=== PATIENT | male | born 1990 | race Caucasian/White ===

== ENCOUNTER 2017-12-06 16:33 | Emergency (ER) | payer SELFPAY ==
[2017-12-06 16:38] VITALS: BP 133/89; PULSE 76; TEMP 98.7; BMI 35.7
--- NOTE | 2017-12-06 16:53 | PDOC ---
History of Present Illness - General History Source: Patient Exam Limitations: No Limitations - History of Present Illness Initial Comments: 12/06/17 17:43 The patient is a 27 year old male with a significant PMH of asthma and anxiety who presents to the emergency department with 2 days of intermittent left sided tingling sensation. The patient reports that his tingling sensation radiated from his left side of his face down to his fingers and toes on his left side. The patient reports some associated intermittent headache and lightheadedness with his left sided tingling sensation. The patient reports that he fell to his knees earlier today secondary to his worsening symptoms. The patient describes that he felt like he was going to pass out. The patient also reports episodes of shortness of breath, chest tightness, nausea and bloating. The patient reports that he was recently diagnosed with type 2 diabetes last week at an urgent care facility. The patient states that he has a follow up appointment with his PCP tomorrow regarding his recent diagnosis. He states that he was recently seen at [facility] 5 days ago.The patient reports that he has had panic attacks in the past. He denies any dizziness. He denies any fever, chills, nausea, vomit, diarrhea and constipation. He denies any urinary symptoms . The patient denies any other complaints. <Monique Gavin - Last Filed: 12/06/17 17:43> - History of Present Illness Initial Comments: 12/06/17 17:35 Physical exam: Alert and oriented, moderately anxious but in no acute distress, cooperative Afebrile, vital signs normal PERRLA, fundi benign, ENT clear Neck supple without bruit mass or nodes Lungs clear CV regular without murmur rub or gallop Abdomen benign Neurological C2 to 12 intact. Although the patient complains of intermittent tingling on the left side of his body, there is no demonstrable sensory deficit. No motor deficits. Strength full and symmetric. Gait stable and unimpaired. Reflexes 2+ symmetric. Cerebellum intact Impression: Anxiety, panic attacks, hyperventilation. Plan: EKG, chest x-ray, and blood work was negative at another hospital 5 days ago. No [employer] imaging was performed. CT today. If negative, follow up with PCP, psychiatrist, and therapist as directed. <Mati Oh - Last Filed: 12/06/17 18:05> - General Chief Complaint: Psychiatric Stated Complaint: LEFT SIDE TINGLING Time Seen by Provider: 12/06/17 16:53 Past History <Monique Gavin - Last Filed: 12/06/17 17:43> - Past Medical History Asthma: Yes Cardiac Disorders: No COPD: No DVT: No Dementia: No Diabetes: Yes Psychiatric Problems: Yes (ANXIETY) - Suicide/Smoking/Psychosocial Hx Smoking Status: No Smoking History: Former smoker Have you smoked in the past 12 months: No Number of Cigarettes Smoked Daily: 2 Information on smoking cessation initiated: No Hx Alcohol Use: Yes Drug/Substance Use Hx: No Substance Use Type: Alcohol <Mati Oh - Last Filed: 12/06/17 18:05> - Past Medical History Allergies/Adverse Reactions: Allergies Allergy/AdvReac Type Severity Reaction Status Date / Time No Known Allergies Allergy Verified 12/06/17 16:34 Home Medications: Ambulatory Orders Clonazepam [Klonopin] 0.5 mg PO DAILY 12/06/17 Review of Systems - Review of Systems Able to Perform ROS?: Yes Comments:: 12/06/17 17:44 CONSTITUTIONAL: Absent: fever, chills, diaphoresis, generalized weakness, malaise, loss of appetite HEENT: Absent: rhinorrhea, nasal congestion, throat pain, throat swelling, difficulty swallowing, mouth swelling, ear pain, eye pain, visual Changes CARDIOVASCULAR: (+)chest pain, lightheadedness Absent: syncope, palpitations, irregular heart rate, peripheral edema RESPIRATORY: (+)shortness of breath Absent: cough, dyspnea with exertion, orthopnea, wheezing, stridor, hemoptysis GASTROINTESTINAL:(+) nausea Absent: abdominal pain, abdominal distension, vomiting, diarrhea, constipation, melena, hematochezia GENITOURINARY: Absent: dysuria, frequency, urgency, hesitancy, hematuria, flank pain, genital pain MUSCULOSKELETAL: Absent: myalgia, arthralgia, joint swelling SKIN: Absent: rash, itching, pallor HEMATOLOGIC/IMMUNOLOGIC: Absent: easy bleeding, easy bruising, lymphadenopathy, frequent infections ENDOCRINE: Absent: unexplained weight gain, unexplained weight loss, heat intolerance, cold intolerance NEUROLOGIC: (+)headache , tingling sensation on left side of body Absent: focal weakness or paresthesias, dizziness, unsteady gait, seizure, mental status changes, bladder or bowel incontinence PSYCHIATRIC: (+)anxiety Absent: depression, suicidal or homicidal ideation, hallucinations. <Monique Gavin - Last Filed: 12/06/17 17:43> *Physical Exam - Vital Signs Last Vital Signs Temp Pulse Resp BP Pulse Ox 98.7 F 76 16 133/89 100 12/06/17 16:34 12/06/17 16:34 12/06/17 16:34 12/06/17 16:34 12/06/17 16:34 <Monique Gavin - Last Filed: 12/06/17 17:43> - Vital Signs Last Vital Signs Temp Pulse Resp BP Pulse Ox 98.7 F 76 16 133/89 100 12/06/17 16:34 12/06/17 16:34 12/06/17 16:34 12/06/17 16:34 12/06/17 16:34 <Mati Oh - Last Filed: 12/06/17 18:05> ED Treatment Course - ADDITIONAL ORDERS Additional order review: Laboratory Results 12/06/17 16:45 POC Glucometer [id number] 12/06/17 16:45 POC Glucometer [id number] <Monique Gavin - Last Filed: 12/06/17 17:43> Medical Decision Making - Medical Decision Making 12/06/17 17:33 Patient with a long history of anxiety, panic attacks, complains of recent onset of headaches and intermittent tingling of his left face left arm and left leg for 2 days. Evaluated 5 days ago at [facility], with EKG, chest x-ray, and blood work, reportedly negative. No diagnosis or treatment Self medicated with Klonopin for anxiety, no more than 2 mg each day. Also with hydroxyzine. Former heavy alcohol abuse, claims no alcohol since November 12. No tobacco. No street drugs. Has appointment with PCP tomorrow, investigating psychiatric consultation and initiating treatment by therapist. If CT negative, continue present treatment plan. 12/06/17 18:03 CT is negative. <Mati Oh - Last Filed: 12/06/17 18:05> *DC/Admit/Observation/Transfer - Attestations Scribe Attestion: 12/06/17 17:44 Documentation prepared by Collisia Romaine, acting as electromedical equipment technician for Mati Bhat MD. <Monique Gavin - Last Filed: 12/06/17 17:43> - Discharge Dispostion Decision to Admit order: No <Mati Oh - Last Filed: 12/06/17 18:05> Diagnosis at time of Disposition: Anxiety - Discharge Dispostion Disposition: HOME Condition at time of disposition: Stable - Referrals Referrals: Evon Easton MD [Staff Physician] - Chriss Greer MD [Staff Physician] - - Patient Instructions Printed Discharge Instructions: DI for Anxiety -- Adult Additional Instructions: Relaxation techniques, meditation, exercises recommended for stress reduction Begin to see PCP as soon as possible. Consider seeing a psychiatrist and therapist for further assistance.
== END 2017-12-06 18:13 | disposition home or self-care (01) ==
LOC: MERGE 16:33 → FER 16:33
DX: F41.9 Anxiety disorder, unspecified (principal); E11.9 Type 2 diabetes mellitus without complications; Z87.891 Personal history of nicotine dependence; J45.909 Unspecified asthma, uncomplicated
CPT/HCPCS: 70450-TC; 82962; 99282-25

== ENCOUNTER 2017-12-17 01:10 | Emergency (ER) | payer SELFPAY ==
[2017-12-17 01:57] VITALS: TEMP 97.9; BMI 34.4
[2017-12-17] MEDS ORDERED: FAMOTIDINE IV 20 MG/12 ML VIAL IVPUSH ONE (02:01)
[2017-12-17] MEDS ORDERED: SODIUM CHLORIDE 1,000 ML IV STA (02:01)
[2017-12-17] MEDS ORDERED: ACETAMINOPHEN 1000 MG/100 ML VIAL (NON FORMULARY) IVPB ONE (02:01)
[2017-12-17] MEDS ORDERED: FAMOTIDINE 20 MG/50 ML IVPB 20 MG/50 ML MG IVPB ONE (02:03)
[2017-12-17] MEDS ORDERED: ACETAMINOPHEN INJECTION 100 ML IVPB ONE (02:03)
[2017-12-17 02:24] LABS: BASO % 0.6 % (0-2.0); EOS % 1.7 % (0-4.5); HEMATOCRIT 45.6 % (35.4-49); HEMOGLOBIN 14.3 GM/dL (11.7-16.9); LYMPH % 30.3 % (8-40); MCH 21.7 pg (25.7-33.7); MCHC 31.3 g/dl (32.0-35.9); MEAN CELL VOLUME 69.2 fl (80-96); MEAN PLT VOLUME 10.2 fl (7.5-11.1); MONO % 8.9 % (3.8-10.2); NEUT % 58.5 % (42.8-82.8); PLATELET COUNT 248 K/MM3 (134-434); RBC 6.59 M/mm3 (4.00-5.60); RDW 14.5 % (11.9-15.9); WHITE BLOOD COUNT 10.4 K/mm3 (4.0-10.0)
--- NOTE | 2017-12-17 02:47 | PDOC ---
History of Present Illness - General History Source: Patient Exam Limitations: No Limitations - History of Present Illness Initial Comments: 12/17/17 03:01 The patient is a 27 year old male, with a significant past medical history of DM , depression, anxiety, and asthma, who presents to the emergency department with , 2 days of chest tightness, stomach pain, and irregular heartbeat. The patient describes his chest tightness as if something heavy is sitting on his chest. He describes his abdominal pain to be localized to the epigastric and generalized left quadrant. He reports back,neck, and shoulder pain.The patient reports bradycardia when supine and tachycardia when walking short distances. He checks his heart rate using an at home blood pressure machine with a pulse oximeter. The patient was recently diagnosed with DM and since been put on Metformin for the past 2 weeks. He reports going to [facility] 2 days ago for his symptoms where he had a normal cardiac workup. He was advised to follow up with a service sprinkler helper. He reports multiple episodes of watery diarrhea today. He denies any recent fevers, chills, or headache. He denies any recent nausea, vomit, or constipation. He denies any recent dysuria, frequency, urgency or hematuria. Allergies: NKA Social History: Nonsmoker. Denies EtOH use and recreational drug use. Primary Care Physician: Dr. Chao <Simeon Andrews - Last Filed: 12/17/17 04:28> - General History Source: Patient Exam Limitations: No Limitations <Edgar Coyle - Last Filed: 12/17/17 04:40> - General Chief Complaint: Pain Stated Complaint: CHEST PAIN/STOMACHACHE Time Seen by Provider: 12/17/17 01:47 Past History <Simeon Andrews - Last Filed: 12/17/17 04:28> - Past Medical History COPD: No Diabetes: Yes (2) Psychiatric Problems: Yes - Suicide/Smoking/Psychosocial Hx Smoking History: Never smoked <Edgar Coyle - Last Filed: 12/17/17 04:40> - Past Medical History Allergies/Adverse Reactions: Allergies Allergy/AdvReac Type Severity Reaction Status Date / Time No Known Allergies Allergy Verified 12/17/17 01:36 Home Medications: Ambulatory Orders Escitalopram Oxalate [Lexapro -] mg PO DAILY 12/17/17 Metformin HCl [Metformin HCl ER] 1,000 mg PO BID 12/17/17 Pantoprazole Sodium [Protonix] 40 mg PO DAILY #14 tablet. 12/17/17 clonazePAM [Klonopin -] mg PO BID 12/17/17 Review of Systems - Review of Systems Able to Perform ROS?: Yes Comments:: 12/17/17 03:01 GENERAL/CONSTITUTIONAL: No fever or chills. No weakness. HEAD, EYES, EARS, NOSE AND THROAT: No change in vision. No ear pain or discharge. No sore throat. +CARDIOVASCULAR: Chest pain. Irregular heartbeat. RESPIRATORY: No cough, wheezing, or hemoptysis. +GASTROINTESTINAL: Abdominal pain. Diarrhea. No nausea, vomiting, or constipation. GENITOURINARY: No dysuria, frequency, or change in urination. +MUSCULOSKELETAL: Back pain. Shoulder pain. No joint swelling or pain. No neck pain. SKIN: No rash NEUROLOGIC: No headache, vertigo, loss of consciousness, or change in strength/ sensation. ENDOCRINE: No increased thirst. No abnormal weight change. HEMATOLOGIC/LYMPHATIC: No anemia, easy bleeding, or history of blood clots. ALLERGIC/IMMUNOLOGIC: No hives or skin allergy. All Other Systems: Reviewed and Negative <Simeon Andrews - Last Filed: 12/17/17 04:28> *Physical Exam - Vital Signs Last Vital Signs Temp Pulse Resp BP Pulse Ox 97.9 F 63 18 125/85 98 12/17/17 01:38 12/17/17 01:38 12/17/17 01:38 12/17/17 01:38 12/17/17 01:38 - Physical Exam Comments: 12/17/17 03:01 +GENERAL: Obese. Awake, alert, and fully oriented, in no acute distress HEAD: No signs of trauma ENT: Moist mucosa NECK: Normal ROM, supple. LUNGS: Breath sounds equal, clear to auscultation bilaterally. No wheezes, and no crackles HEART: Regular rate and rhythm, normal S1 and S2, no murmurs, rubs or gallops +ABDOMEN: Tenderness to the epigastric and diffuse left upper and lower quadrant. Soft. No guarding, no rebound. No masses EXTREMITIES: Normal range of motion, no edema. No clubbing or cyanosis. No cords, erythema, or tenderness NEUROLOGICAL: Cranial nerves II through XII grossly intact. Normal speech, normal gait SKIN: Warm, Dry, normal turgor, no rashes or lesions noted. <Simeon Andrews - Last Filed: 12/17/17 04:28> - Vital Signs Last Vital Signs Temp Pulse Resp BP Pulse Ox 97.9 F 63 18 125/85 98 12/17/17 01:38 12/17/17 01:38 12/17/17 01:38 12/17/17 01:38 12/17/17 01:38 <Edgar Coyle - Last Filed: 12/17/17 04:40> Heart Score/ECG Review #1 ECG reviewed & interpreted by me at: 02:45 12/17/17 02:50 NSR 54, no std/sarah, T wave flat III, normal axis, normal intervals, QTC 424 msec <Edgar Coyle - Last Filed: 12/17/17 04:40> ED Treatment Course - LABORATORY CBC & Chemistry Diagram: 12/17/17 02:00 12/17/17 02:00 - ADDITIONAL ORDERS Additional order review: Laboratory Results 12/17/17 02:00 Sodium 140 Potassium 3.9 Chloride 107 Carbon Dioxide 24 Anion Gap 9 BUN 12 Creatinine 1.2 Creat Clearance w eGFR > 60 Random Glucose 83 Calcium 9.4 Total Bilirubin 0.3 AST 41 H ALT 125 H Alkaline Phosphatase 76 Creatine Kinase 138 Troponin I < 0.02 Total Protein 7.0 Albumin 4.0 Lipase 136 12/17/17 02:00 RBC 6.59 H MCV 69.2 L MCHC 31.3 L RDW 14.5 MPV 10.2 Neutrophils % 58.5 Lymphocytes % 30.3 Monocytes % 8.9 Eosinophils % 1.7 Basophils % 0.6 - Medications Given in the ED: ED Medications Discontinued Medications Generic Name Dose Route Start Last Admin Trade Name Freq PRN Reason Stop Dose Admin Acetaminophen 1,000 mg 12/17/17 02:01 12/17/17 02:24 Ofirmev Injection - IVPB 12/17/17 02:02 1,000 mg ONCE ONE Administration Famotidine 20 mg in 12 mls @ 144 mls/hr 12/17/17 02:01 12/17/17 02:15 Pepcid 20 Mg/12 Ml Push IVPUSH 12/17/17 02:05 144 mls/hr ONCE ONE Administration Sodium Chloride 1,000 mls @ 1,000 mls/hr 12/17/17 02:01 12/17/17 02:15 Normal Saline - IV 12/17/17 03:00 1,000 mls/hr ASDIR STA Administration <Simeon Andrews - Last Filed: 12/17/17 04:28> - LABORATORY CBC & Chemistry Diagram: 12/17/17 02:00 12/17/17 02:00 - RADIOLOGY Radiology Studies Ordered: Category Date Time Status ABDOMEN & PELVIS CT WITH CONTR [CT] Stat CT Scan 12/17/17 01:59 Ordered CHEST X-RAY PORTABLE* [RAD] Stat Radiology 12/17/17 01:59 Ordered - Medications Given in the ED: ED Medications Discontinued Medications Generic Name Dose Route Start Last Admin Trade Name Freq PRN Reason Stop Dose Admin Famotidine 20 mg in 12 mls @ 144 mls/hr 12/17/17 02:01 12/17/17 02:15 Pepcid 20 Mg/12 Ml Push IVPUSH 12/17/17 02:05 144 mls/hr ONCE ONE Administration <Edgar Coyle - Last Filed: 12/17/17 04:40> Medical Decision Making - Medical Decision Making 12/17/17 04:28 EXAM: ABDOMEN \T\ PELVIS CT WITH CONTR HISTORY: Left abdominal pain COMPARISON: None. FINDINGS: Lung bases are clear. The visualized cardiac chambers are normal size and configuration. Normal liver, gallbladder, pancreas, spleen, adrenal glands and kidneys. The stomach and abdominal small and large bowel are normal. There is no aortic aneurysm. There is no significant retroperitoneal lymphadenopathy. The pelvic small and large bowel are normal. The appendix is normal. The urinary bladder and prostate gland are normal. No pelvic free fluid is identified. There is no significant pelvic lymphadenopathy. Small fat-containing right inguinal hernia is noted. Old bilateral L5 pars defects noted with a minimal listhesis of L5 on S1. IMPRESSION: No localizing signs for acute pathology. 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 I have reviewed the details of the note, within reason, and agree with the documentation with the following case summary and management plan written by me. Patient treated in the ED. Nursing notes are reviewed and incorporated into the medical decision-making. Vital signs reviewed. Peripheral IV access obtained by the nurse, laboratory studies are drawn and sent, reviewed and interpreted by myself. Vital Signs Temp Pulse Resp BP Pulse Ox 97.9 F 63 18 125/85 98 12/17/17 01:38 12/17/17 01:38 12/17/17 01:38 12/17/17 01:38 12/17/17 01:38 27 year old male with history of obesity, depression, Type II diabetes presents with chest pain and abdominal pain x 2 days. The patient stated 2 days ago of developing a chest heaviness sensation but without associated shortness of breath. The patient started to develop chest discomfort with abdominal pain, worse in epigastric, LUQ, and LLQ. Had 1 loose stool today but denies fevers, chills, cough, nausea, vomiting. The patient has recently started lexapro and metformin approximately 2 weeks ago, and thinks the medications may be upsetting his stomach. The patient denies any prior cardiac history and denies smoking hx. Came in for these two symptoms. The patient also endorses of having a HR in the 50s at rest and 130s on walking. States that he feels his heart rate fluctuate quite often. The patient does report epigastric pain reporting to throat. The pain could certain by severe gastritis. however, given hx of diabetes, will need to obtain troponins. The patient did visit an ED 2 days ago at [facility] and reported a negative troponin then. Could the alternating heart rate be sick sinus syndrome ? Will place patient on monitor as well. Will obtain a chest xray, labs, UA, UC and CT abdomen and pelvis and reassess. 12/17/17 04:34 CBC, BMP 12/17/17 02:00 12/17/17 02:00 CMP Sodium 140 mmol/L (136-145) 12/17/17 02:00 Potassium 3.9 mmol/L (3.5-5.1) 12/17/17 02:00 Chloride 107 mmol/L (98-107) 12/17/17 02:00 Carbon Dioxide 24 mmol/L (21-32) 12/17/17 02:00 Anion Gap 9 (8-16) 12/17/17 02:00 BUN 12 mg/dL (7-18) 12/17/17 02:00 Creatinine 1.2 mg/dL (0.7-1.3) 12/17/17 02:00 Creat Clearance w eGFR > 60 (>60) 12/17/17 02:00 Random Glucose 83 mg/dL (74-106) 12/17/17 02:00 Calcium 9.4 mg/dL (8.5-10.1) 12/17/17 02:00 Total Bilirubin 0.3 mg/dL (0.2-1.0) 12/17/17 02:00 AST 41 U/L (15-37) H 12/17/17 02:00 ALT 125 U/L (12-78) H 12/17/17 02:00 Alkaline Phosphatase 76 U/L (45-117) 12/17/17 02:00 Creatine Kinase 138 IU/L (39-308) 12/17/17 02:00 Troponin I < 0.02 ng/ml (0.00-0.05) 12/17/17 02:00 Total Protein 7.0 g/dl (6.4-8.2) 12/17/17 02:00 Albumin 4.0 g/dl (3.4-5.0) 12/17/17 02:00 Lipase 136 U/L (73-393) 12/17/17 02:00 12/17/17 04:[address] reviewed. No acute findings. After pepcid, the patient did report some relief. The patient's ECG is reassurring and does not demonstrate any acute findings. Given negative workup, I advised the patient that he will need a holter monitor. At this time, the troponin is negative. The LFTs are mildly elevated, but will have patient follow up with PMD. Patient has no RUQ abd pain. The patient states that he is agreeable to the plan and will follow up as an outpatient. Will discharge with protonix. <Edgar Coyle - Last Filed: 12/17/17 04:40> *DC/Admit/Observation/Transfer - Attestations Scribe Attestion: 12/17/17 03:03 Documentation prepared by Simeon Andrews, acting as medical doctor nuclear medicine for Edgar Coyle MD. <Simeon Andrews - Last Filed: 12/17/17 04:28> - Discharge Dispostion Decision to Admit order: No <Edgar Coyle - Last Filed: 12/17/17 04:40> Diagnosis at time of Disposition: Atypical chest pain Abdominal pain Qualifiers: Abdominal location: unspecified location Qualified Code(s): R10.9 - Unspecified abdominal pain - Discharge Dispostion Disposition: HOME Condition at time of disposition: Stable - Prescriptions Prescriptions: Pantoprazole Sodium [Protonix] 40 mg PO DAILY #14 tablet.dr - Referrals Referrals: Ashwin Khan MD [Staff Physician] - Jose Macario MD [Staff Physician] - - Patient Instructions Printed Discharge Instructions: DI for Atypical Chest Pain, DI for Abdominal Pain-Adult, DI for Gastritis Additional Instructions: Your workup here in the ED is unremarkable. The liver function tests are slightly elevated. Please bring a copy of the tests to your doctor. In the meantime, please schedule an appointment with a service sprinkler helper. You will benefit from a holter monitor. Please drink plenty of fluids and rest. Take 40 mg protonix daily for acid reflux. If you have uncontrollable chest or abdominal pain, please return to the ER for further evaluation.
[2017-12-17 02:49] LABS: ANION GAP 9 (8-16); BILIRUBIN,TOTAL 0.3 mg/dL (0.2-1.0); BLOOD UREA NITROGEN 12 mg/dL (7-18); CALCIUM 9.4 mg/dL (8.5-10.1); CHLORIDE 107 mmol/L (98-107); CO2 24 mmol/L (21-32); CREATININE 1.2 mg/dL (0.7-1.3); GLUCOSE,RANDOM 83 mg/dL (74-106); LIPASE 136 U/L (73-393); POTASSIUM 3.9 mmol/L (3.5-5.1); SGOT/AST 41 U/L (15-37); SGPT/ALT 125 U/L (12-78); SODIUM 140 mmol/L (136-145)
[2017-12-17 02:51] LABS: ALK PHOS 76 U/L (45-117)
[2017-12-17 03:01] LABS: ANISOCYTOSIS 2+; MACROCYTOSIS 1+
[2017-12-17 05:09] VITALS: BP 115/68; PULSE 72
--- NOTE | 2017-12-17 10:12 | EKG ---
Test Reason : Blood Pressure : / mmHG Vent. Rate : 054 BPM Atrial Rate : 054 BPM P-R Int : 162 ms QRS Dur : 094 ms QT Int : 448 ms P-R-T Axes : 041 051 041 degrees QTc Int : 424 ms SINUS BRADYCARDIA OTHERWISE NORMAL ECG NO PREVIOUS ECGS AVAILABLE Confirmed by VERO MARTINEZ, KELTON ([id number]) on 12/17/2017 10:11:49 AM Referred By: Confirmed By:KELTON PHAM MD
== END 2017-12-17 05:06 | disposition home or self-care (01) ==
LOC: JER 01:10
DX: R07.89 Other chest pain (principal); R10.9 Unspecified abdominal pain; E11.9 Type 2 diabetes mellitus without complications; F41.8 Other specified anxiety disorders; J45.909 Unspecified asthma, uncomplicated
CPT/HCPCS: 36415; 71045-TC-FY; 74177-TC; 80053; 82550; 83690; 84484; 85025; 93005; 93010; 99281-25; J0131; J7030

== ENCOUNTER 2017-12-18 04:48 | Observation (INO) | payer SELFPAY ==
--- NOTE | 2017-12-18 05:09 | PDOC ---
History of Present Illness - General Chief Complaint: Chest Pain Stated Complaint: CHEST PAIN Time Seen by Provider: 12/18/17 04:58 History Source: Patient, Old Records Exam Limitations: No Limitations - History of Present Illness Initial Comments: 12/18/17 05:01 27-year-old male with history of depression, diabetes returns to the ER for persistent symptoms. Patient reports persistent lightheadedness and has been measuring his heart rate to be 48 at home. Reports persistence of chest pain. I had initially talked to the patient on the phone when he had the symptoms again overnight and advised patient returned the ER. Patient presents to the ER with the symptoms. Past History - Past Medical History Allergies/Adverse Reactions: Allergies Allergy/AdvReac Type Severity Reaction Status Date / Time No Known Allergies Allergy Verified 12/18/17 04:56 Home Medications: Ambulatory Orders Escitalopram Oxalate [Lexapro -] 10 mg PO DAILY 12/17/17 Metformin HCl [Metformin HCl ER] 1,000 mg PO BID 12/17/17 clonazePAM [Klonopin -] 1 mg PO BID 12/17/17 COPD: No Diabetes: Yes (2) Psychiatric Problems: Yes - Suicide/Smoking/Psychosocial Hx Smoking History: Never smoked Review of Systems - Review of Systems Able to Perform ROS?: Yes Comments:: 12/18/17 05:02 GENERAL/CONSTITUTIONAL: No fever, weakness. HEAD, EYES, EARS, NOSE AND THROAT: No change in vision. No ear pain or discharge. No sore throat. CARDIOVASCULAR: +chest pain, lightheadedness. No shortness of breath. RESPIRATORY: No cough, wheezing, or hemoptysis. GASTROINTESTINAL: No abdominal pain, nausea, vomiting, diarrhea, or decreased PO intolerance. GENITOURINARY: No dysuria, frequency, or change in urination. MUSCULOSKELETAL: No joint or muscle swelling or pain. No neck or back pain. SKIN: No rash NEUROLOGIC: No headache, vertigo, loss of consciousness, or change in strength/ sensation. ENDOCRINE: No increased thirst. No abnormal weight change. HEMATOLOGIC/LYMPHATIC: No anemia, easy bleeding, or history of blood clots. ALLERGIC/IMMUNOLOGIC: No hives or skin allergy. *Physical Exam - Physical Exam Comments: 12/18/17 05:03 GENERAL: Awake, alert, and fully oriented, in no acute distress. HEAD: No signs of trauma EYES: PERRLA, EOMI, sclera anicteric, conjunctiva clear ENT: Auricles normal inspection, hearing grossly normal, nares patent NECK: Normal ROM, supple LUNGS: Breath sounds equal, clear to auscultation bilaterally. No wheezes, and no crackles HEART: Regular rate and rhythm, normal S1 and S2, no murmurs, rubs or gallops ABDOMEN: Soft, nontender, No guarding, no rebound. No masses EXTREMITIES: Normal range of motion, no edema. No clubbing or cyanosis. No cords, erythema, or tenderness NEUROLOGICAL: Cranial nerves II through XII grossly intact. Normal speech, normal gait SKIN: Warm, Dry, normal turgor, no rashes or lesions noted. Heart Score/ECG Review #1 ECG reviewed & interpreted by me at: 05:25 12/18/17 05:34 NSR 57, no std/sarah, normal axis, normal intervals, QTC 424 msec ED Treatment Course - LABORATORY CBC & Chemistry Diagram: 12/18/17 05:05 12/18/17 05:05 Medical Decision Making - Medical Decision Making 12/18/17 05:01 A portion of this note was documented by scribe services under my direction. I have reviewed the details of the note, within reason, and agree with the documentation with the following case summary and management plan written by me. Patient treated in the ED. Nursing notes are reviewed and incorporated into the medical decision-making. Vital signs reviewed. Peripheral IV access obtained by the nurse, laboratory studies are drawn and sent, reviewed and interpreted by myself. Because of the persistence of the symptoms, the patient be evaluated from a cardiac standpoint of view. This includes telemetry. Again, could this be sick sinus syndrome? Ultimately, we'll obtain another EKG and troponin and admit the patient to hospital for further admission. 12/18/17 06:51 CBC, BMP 12/18/17 05:05 12/18/17 05:05 CMP Sodium 139 mmol/L (136-145) 12/18/17 05:05 Potassium 4.5 mmol/L (3.5-5.1) 12/18/17 05:05 Chloride 108 mmol/L (98-107) H 12/18/17 05:05 Carbon Dioxide 27 mmol/L (21-32) 12/18/17 05:05 Anion Gap 4 (8-16) L 12/18/17 05:05 BUN 8 mg/dL (7-18) D 12/18/17 05:05 Creatinine 1.2 mg/dL (0.7-1.3) 12/18/17 05:05 Creat Clearance w eGFR > 60 (>60) 12/18/17 05:05 Random Glucose 111 mg/dL (74-106) H D 12/18/17 05:05 Calcium 9.1 mg/dL (8.5-10.1) 12/18/17 05:05 Total Bilirubin 0.3 mg/dL (0.2-1.0) 12/18/17 05:05 AST 48 U/L (15-37) H 12/18/17 05:05 ALT 123 U/L (12-78) H 12/18/17 05:05 Alkaline Phosphatase 79 U/L (45-117) 12/18/17 05:05 Creatine Kinase 183 IU/L (39-308) 12/18/17 05:05 Troponin I < 0.02 ng/ml (0.00-0.05) 12/18/17 05:05 Total Protein 7.1 g/dl (6.4-8.2) 12/18/17 05:05 Albumin 4.0 g/dl (3.4-5.0) 12/18/17 05:05 TSH 1.28 uIU/ml (0.358-3.74) 12/18/17 05:05 Case discussed with [facility] hospitalist. Will admit to tele observation. *DC/Admit/Observation/Transfer Diagnosis at time of Disposition: Lightheadedness Chest pain Qualifiers: Chest pain type: unspecified Qualified Code(s): R07.9 - Chest pain, unspecified - Discharge Dispostion Condition at time of disposition: Stable Decision to Admit order: Yes - Referrals - Patient Instructions - Post Discharge Activity
[2017-12-18 05:21] LABS: BASO % 0.7 % (0-2.0); EOS % 2.7 % (0-4.5); HEMATOCRIT 44.6 % (35.4-49); LYMPH % 30.7 % (8-40); MCH 21.7 pg (25.7-33.7); MCHC 31.4 g/dl (32.0-35.9); MEAN CELL VOLUME 69.2 fl (80-96); MEAN PLT VOLUME 10.2 fl (7.5-11.1); MONO % 9.1 % (3.8-10.2); NEUT % 56.8 % (42.8-82.8); PLATELET COUNT 241 K/MM3 (134-434); RBC 6.44 M/mm3 (4.00-5.60); RDW 14.8 % (11.9-15.9); WHITE BLOOD COUNT 8.9 K/mm3 (4.0-10.0)
[2017-12-18 05:43] LABS: ANION GAP 4 (8-16); BILIRUBIN,TOTAL 0.3 mg/dL (0.2-1.0); BLOOD UREA NITROGEN 8 mg/dL (7-18); CALCIUM 9.1 mg/dL (8.5-10.1); CHLORIDE 108 mmol/L (98-107); CO2 27 mmol/L (21-32); CREATININE 1.2 mg/dL (0.7-1.3); GLUCOSE,RANDOM 111 mg/dL (74-106); SGPT/ALT 123 U/L (12-78); SODIUM 139 mmol/L (136-145); TOT PROT 7.1 g/dl (6.4-8.2)
[2017-12-18 05:52] LABS: ALK PHOS 79 U/L (45-117); POTASSIUM 4.5 mmol/L (3.5-5.1); SGOT/AST 48 U/L (15-37)
--- NOTE | 2017-12-18 08:34 | EKG ---
Test Reason : Blood Pressure : / mmHG Vent. Rate : 057 BPM Atrial Rate : 057 BPM P-R Int : 158 ms QRS Dur : 090 ms QT Int : 436 ms P-R-T Axes : 051 050 052 degrees QTc Int : 424 ms SINUS BRADYCARDIA OTHERWISE NORMAL ECG WHEN COMPARED WITH ECG OF 17-DEC-2017 02:43, NO SIGNIFICANT CHANGE WAS FOUND BASELINE ARTIFACT Confirmed by ANDRA MARTINEZ, NOY ([id number]) on 12/18/2017 8:34:24 AM Referred By: Confirmed By:NOY SILVERMAN MD
[2017-12-18] MEDS ORDERED: ALBUTEROL SO4 0.083% IH SOL 2.5 MG/3 ML VIAL.NEB. NEB PRN (09:02)
[2017-12-18 09:16] LABS: MAGNESIUM 2.1 mg/dL (1.8-2.4); PHOSPHOROUS 6.9 mg/dL (2.5-4.9)
[2017-12-18 09:42] LABS: PLATELET ESTIMATE ADEQUATE
--- NOTE | 2017-12-18 09:42 | HP ---
CHIEF COMPLAINT: lightheadedness, low HR PCP: HISTORY OF PRESENT ILLNESS: The patient is a 27 year old male with a PMH of depression, anxiety, DMII, asthma that presented to the hospital complaining of lightheadedness and low HR measured at home. He checks his HR several times a day and it ranges from 47 to 86. He endorses lightheadedness, chest tightness, occasional palpitations when lying in bed. He reports SOB due to his asthma that is relieved with Albuterol. The patient states that for the past 2 months he has been experiencing daily anxiety attacks. He believes that it is related to starting new job. He denies suicidal thoughts, lack of interest in daily activities, insomnia. One month ago he stopped using alcohol, (used to drink 4-5 alcoholic drinks a week, usually beer or wine). The patient also decided to eat healthy balanced diet, lost weight, around 20 lbs. Two weeks ago he visited urgent care clinic ( Dr Romo) and was diagnosed with DMII. His HgA1C was 10.8 and he was started on Metformin. The patient also visited his PCP that started him on Klonopin and Lexapro 2 weeks ago. The patient visited [facility] ER yesterday with similar complaints. He was told to see outpatient certified teacher assistant and was prescribed Protonix. 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 [employer] Family History: Mother: thyroid disease Father: ID x2 Uncle: ID Siblings healthy Allergies No Known Allergies Allergy (Verified 12/18/17 04:56) HOME MEDICATIONS: Home Medications Medication Instructions Recorded Escitalopram Oxalate [Lexapro -] 10 mg PO DAILY 12/17/17 Metformin HCl [Metformin HCl ER] 1,000 mg PO BID 12/17/17 clonazePAM [Klonopin -] 1 mg PO BID 12/17/17 REVIEW OF SYSTEMS CONSTITUTIONAL: loss of appetite, weight change Absent: fever, chills, diaphoresis, generalized weakness, malaise HEENT: Absent: rhinorrhea, nasal congestion, throat pain, throat swelling, difficulty swallowing, mouth swelling CARDIOVASCULAR: lightheadedness, Absent: chest pain, syncope, palpitations, irregular heart rate, peripheral edema RESPIRATORY: Absent: cough, shortness of breath, dyspnea with exertion, orthopnea, wheezing, stridor, hemoptysis GASTROINTESTINAL: Absent: abdominal pain, abdominal distension, nausea, vomiting, diarrhea, constipation, melena, hematochezia GENITOURINARY: Absent: dysuria, frequency, urgency, hesitancy, hematuria, flank pain, genital pain MUSCULOSKELETAL: Absent: myalgia, arthralgia, joint swelling, back pain, neck pain SKIN: Absent: rash, itching, pallor HEMATOLOGIC/IMMUNOLOGIC: Absent: easy bleeding, easy bruising, frequent infections ENDOCRINE: Absent: unexplained weight gain, unexplained weight loss, heat intolerance, cold intolerance NEUROLOGIC: Absent: headache, focal weakness or paresthesias, dizziness, unsteady gait, seizure PSYCHIATRIC: anxiety, depression Absent:suicidal or homicidal ideation, hallucinations. PHYSICAL EXAMINATION Vital Signs - 24 hr 12/18/17 04:56 Pulse Rate 59 L Respiratory 17 Rate Blood Pressure 131/96 O2 Sat by Pulse 99 Oximetry (%) GENERAL: Awake, alert, and fully oriented, in no acute distress. HEAD: Normal with no signs of trauma. EYES: Pupils equal, round and reactive to light, extraocular movements intact, sclera anicteric, conjunctiva clear. EARS, NOSE, THROAT: oropharynx clear without exudates. Moist mucous membranes. NECK: Normal range of motion, supple without lymphadenopathy. LUNGS: Breath sounds equal, clear to auscultation bilaterally. No wheezes, and no crackles. No accessory muscle use. HEART: Regular rate and rhythm, normal S1 and S2 without murmur, rub or gallop. ABDOMEN: Obese, soft, nontender, distended, normoactive bowel sounds, no guarding, no rebound, no masses. MUSCULOSKELETAL: Normal range of motion at all joints. No bony deformities or tenderness. No CVA tenderness. UPPER EXTREMITIES: 2+ pulses, no peripheral edema. LOWER EXTREMITIES: 2+ pulses, no peripheral edema. NEUROLOGICAL: Normal speech, no facial asymmetry, gait not observed. PSYCHIATRIC: Cooperative. Good eye contact. SKIN: Warm, dry, normal turgor, no rashes or lesions noted. Laboratory Results - last 24 hr 12/18/17 12/18/17 05:05 05:05 WBC 8.9 RBC 6.44 H Hgb 14.0 Hct 44.6 MCV 69.2 L MCH 21.7 L MCHC 31.4 L RDW 14.8 Plt Count 241 MPV 10.2 Neutrophils % 56.8 Lymphocytes % 30.7 Monocytes % 9.1 Eosinophils % 2.7 Basophils % 0.7 Nucleated RBC % 0 Sodium 139 Potassium 4.5 Chloride 108 H Carbon Dioxide 27 Anion Gap 4 L BUN 8 D Creatinine 1.2 Creat Clearance w eGFR > 60 Random Glucose 111 H D Calcium 9.1 Total Bilirubin 0.3 AST 48 H ALT 123 H Alkaline Phosphatase 79 Creatine Kinase 183 Creatine Kinase Index 0.5 CK-MB (CK-2) < 1.000 Troponin I < 0.02 Total Protein 7.1 Albumin 4.[address] abdomen/pelvis 12/17/17: No CT evidence of an acute process in the abdomen and pelvis. Limited evaluation of the colon due to lack of oral contrast administration with suggestion of scattered diverticula and without evidence of colitis/ acute diverticulitis. Minimal anterolisthesis of L5 over S1, grade 1 with chronic spondylolysis of the pars interarticularis, bilaterally. CXR 12/17/17: no acute pathology ASSESSMENT/PLAN: The patient is a 27 year old male with a PMH of depression, anxiety, DMII, asthma that presented to the hospital complaining of lightheadedness and low HR measured at home. He checks his HR several times a day and it ranges from 47 to 86. He endorses lightheadedness, chest tightness, occasional palpitations when lying in bed.The patient is admitted for lightheadedness, R/O ACS. R/o ACS: -the patient presented with compaints of lightheadedness, bradycardia and chest tightness that usually happens when he is in bed. The patient is also experiencing anxiety attacks and was started on new meds recently. His symptoms may be related to depression/anxiety but we need to r/o ACS. -we will continue cardiac monitoring -ECHO ordered -first troponin normal, will f/u next one -EKG NSR, no sarah/std, 57 bpm, QTC 424 -will f/u Cardiology recommendations Elevated liver enzymes: -the patient was told in the past that he has fatty liver and that also prompted him to stop drinking alcohol -CT abdomen didn't visualize any abnormality -we will obtain US liver -avoid toxic substances -will trend CMP History of alcoholism: -the patient states that he s not drinking for a month -will add on phosphorus and Mg to morning labs -counseling DMII: -states that his last Hg A1C was 9.85 last week -will obtain one ere in the hospital, added to morning labs -BGM ACHS -ISS ACHS -Metformin held -Diabetic diet -educated on healthy diet and need to check glucose at home Depression and anxiety: -recently diagnosed, no attacks in the hospital, no suicidal, no need for 1:1 continue home medications -will consult Psychiatry Hyperphosphatemia: -normal Ca -will obtain PTH, Vit D -will monitor Asthma: -Albuterol PRN -stabe F/E/N: no/no changes/Diabetic DVT PPX: Heparin sq scds Disposition: telemetry observation Problem List - Problem (1) Bradycardia Code(s): R00.1 - BRADYCARDIA, UNSPECIFIED (2) Depression Code(s): F32.9 - MAJOR DEPRESSIVE DISORDER, SINGLE EPISODE, UNSPECIFIED (3) Anxiety Code(s): F41.9 - ANXIETY DISORDER, UNSPECIFIED (4) Diabetes Code(s): E11.9 - TYPE 2 DIABETES MELLITUS WITHOUT COMPLICATIONS (5) Lightheadedness Code(s): R42 - DIZZINESS AND GIDDINESS (6) Atypical chest pain Code(s): R07.89 - OTHER CHEST PAIN Visit type - Emergency Visit Emergency Visit: Yes ED Registration Date: 12/18/17 Care time: The patient presented to the Emergency Department on the above date and was hospitalized for further evaluation of their emergent condition. - New Patient This patient is new to me today: Yes Date on this admission: 12/18/17 - Critical Care Critical Care patient: No Hospitalist Screening - Colonoscopy Questionnaire Colonoscopy Questionnaire: Colonoscopy Questionnaire - Patient: 50 - 75 years old and never had a screening colonoscopy: No History of colon or rectal polyps, or CA: No History of IBD, Crohn's disease or UC: No History of abdominal radiation therapy as a child: No - Relative: 1 with colon or rectal CA, or polyps at age 60 or younger: No Colon or rectal CA diagnosed at age 45 or younger: No Multiple relatives with colon or rectal CA: No - Outcome: Screening Result: Negative Screen
[2017-12-18] MEDS: HEPARIN NA (PORCINE) 5,000 UNITS/ML 1ML VIAL SQ SCH ×2 (10:52→21:56)
[2017-12-18] MEDS: clonazePAM 0.5 MG TABLET PO SCH ×2 (10:52→21:56)
[2017-12-18] MEDS: ESCITALOPRAM OXALATE 10 MG TABLET (FP) PO SCH (10:52)
--- NOTE | 2017-12-18 11:52 | PN ---
Teaching Attending Note Name of Resident: Lyric Ha ATTENDING PHYSICIAN STATEMENT I saw and evaluated the patient. I reviewed the resident's note and discussed the case with the resident. I agree with the resident's findings and plan as documented with exceptions below. SUBJECTIVE: 27 yom with PMHx of Depression/anxiety, Asthma, obesity, recently diagnosed DM started on metformin, comes with intermittent symptoms of chest pain, palpitaitons, anxiety, lightheadedness. Feels has been having 'anxiety attacks' over last few weeks. Was seen in urgent care, found with A1c > 10, placed on metformin. Also seen by PCP and started on lexapro and klonopin. Was seen in ED on 12/17 with vague chest/abdominal symptoms, s/p non concerning CT A/p and sent out on protonix with outpatient follow up with outer diameter grinder tool. However back in ED with similar symptoms today and admitted to obs. patient anxious, also reports snoring at night. No recent fevers, chills, changes in bowels. Mother and brother with anxiety. Father with KS in 50s, uncle with KS. Recently lost weight and has been doing yoga few times a week. OBJECTIVE: Vital Signs Period Temp Pulse Resp BP Sys/Hung Pulse Ox Last 24 Hr 57-59 16-17 131-145/74-96 99-100 Intake & Output 12/15/17 12/16/17 12/17/17 12/18/17 23:59 23:59 23:59 23:59 Weight 229 lb 15.991 oz GENERAL: Awake, alert, and fully oriented, in no acute distress, anxious male. HEAD: Normal with no signs of trauma. EYES: Pupils equal, round and reactive to light, extraocular movements intact, sclera anicteric, conjunctiva clear. No lid lag. EARS, NOSE, THROAT: Ears normal, nares patent, oropharynx clear without exudates. Moist mucous membranes. NECK: soft, supple, no JVD, no masses appreciated. LUNGS: Breath sounds equal, clear to auscultation bilaterally. No wheezes, and no crackles. No accessory muscle use. HEART: S1S2 regular ABDOMEN: Soft, nontender, not distended, normoactive bowel sounds, no guarding, no rebound, no masses. No hepatomegaly or splenomegaly. MUSCULOSKELETAL: Normal range of motion at all joints. No bony deformities or tenderness. No CVA tenderness. UPPER EXTREMITIES: 2+ pulses, warm, well-perfused. No cyanosis. No clubbing. No peripheral edema. LOWER EXTREMITIES: 2+ pulses, warm, well-perfused. No calf tenderness. No peripheral edema. NEUROLOGICAL: Cranial nerves II-XII intact. Normal speech. Normal gait. PSYCHIATRIC: Cooperative. Good eye contact. Appropriate mood and affect. SKIN: Warm, dry, normal turgor, no rashes or lesions noted, normal capillary refill. Home Medication List Medication Instructions Recorded Confirmed Type Escitalopram Oxalate [Lexapro -] 10 mg PO DAILY 12/17/17 12/18/17 History Metformin HCl [Metformin HCl ER] 1,000 mg PO BID 12/17/17 12/18/17 History clonazePAM [Klonopin -] 1 mg PO BID 12/17/17 12/18/17 History Active Medications Generic Name Dose Route Start Last Admin Trade Name Freq PRN Reason Stop Dose Admin Albuterol Sulfate 1 amp 12/18/17 09:02 Ventolin 0.083% Nebulizer Soln - NEB Q6H PRN SHORT OF BREATH/WHEEZING Clonazepam 1 mg 12/18/17 10:00 12/18/17 10:52 Klonopin - PO 1 mg BID JONNIE Administration Escitalopram Oxalate 10 mg 12/18/17 10:00 12/18/17 10:52 Lexapro - PO 10 mg DAILY JONNIE Administration Heparin Sodium (Porcine) 5,000 unit 12/18/17 10:00 12/18/17 10:52 Heparin - SQ 5,000 unit BID JONNIE Administration Insulin Aspart 1 vial 12/18/17 11:00 Novolog Vial Sliding Scale - SQ ACHS ON LICENSE OF [facility] Protocol Laboratory Results - last 24 hr 12/18/17 12/18/17 12/18/17 05:05 05:05 05:05 WBC 8.9 RBC 6.44 H Hgb 14.0 Hct 44.6 MCV 69.2 L MCH 21.7 L MCHC 31.4 L RDW 14.8 Plt Count 241 MPV 10.2 Neutrophils % 56.8 Lymphocytes % 30.7 Monocytes % 9.1 Eosinophils % 2.7 Basophils % 0.7 Nucleated RBC % 0 Platelet Estimate Adequate Platelet Comment No clotting detected Sodium 139 Potassium 4.5 Chloride 108 H Carbon Dioxide 27 Anion Gap 4 L BUN 8 D Creatinine 1.2 Creat Clearance w eGFR > 60 Random Glucose 111 H D Hemoglobin A1c % Calcium 9.1 Phosphorus 6.9 H Cancelled Magnesium 2.1 Cancelled Total Bilirubin 0.3 AST 48 H ALT 123 H Alkaline Phosphatase 79 Creatine Kinase 183 Creatine Kinase Index 0.5 CK-MB (CK-2) < 1.000 Troponin I < 0.02 Total Protein 7.1 Albumin 4.0 TSH 1.28 12/18/17 05:05 WBC RBC Hgb Hct MCV MCH MCHC RDW Plt Count MPV Neutrophils % Lymphocytes % Monocytes % Eosinophils % Basophils % Nucleated RBC % Platelet Estimate Platelet Comment Sodium Potassium Chloride Carbon Dioxide Anion Gap BUN Creatinine Creat Clearance w eGFR Random Glucose Hemoglobin A1c % 9.1 H Calcium Phosphorus Magnesium Total Bilirubin AST ALT Alkaline Phosphatase Creatine Kinase Creatine Kinase Index CK-MB (CK-2) Troponin I Total Protein Albumin TSH EKG sinus bradycardia 50s, no acute ST-T changes CT A/P 12/17 results reviewed CXR - large heart ASSESSMENT AND PLAN: 27 yom with obesity, depression, anxiety, recently diagnosed DM, placed on metformin, comes with ongoing symptoms of "anxiety attack", chest pain, dyspnea , palpitations, light headedness. -Palpitations/lightheadedness, r/o arrhythmia, unlikely ACS -Hyperphosphatemia -Abnormal LFTs, likely hepatic steatosis -Recently Diagnosed DM -Depression -Anxiety -Obesity Plan: Frequent visits to health care for ongoing symptoms. Will place on telemetry overnight, 2Decho, cardiology input. May benefit from outpatient holter if no events. Check Vitamin D and PTH levels. Monitor Phos levels. Endocrine follow up outpatient, ?urine metanephrines, will hold off for now. Check abdominal US, trend LFTs. Continue lexapro and klonopin. Outpatient sleep study. May benefit from psychiatry eval outpatient if w/u unrevealing. Admit to obs, dc in 24 hours if no concerns and negative w/u. Plan discussed with patient in detail, all questions answered. Total admit time 50 min.
[2017-12-18] MEDS: INSULIN SLIDING SCALE (NOVOLOG) 1 VIAL SQ SCH ×3 (12:26→21:56)
--- NOTE | 2017-12-18 13:19 | CON.PSY ---
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 Patient being treated by his PMD for anxiety with Lexapro and KLonapin. Reports no suicidal or IN Patient psych admissions. Symptoms: reports: Anxiety - Previous Psychiatric Treatment Outpatient: Less than 6 mos ago Inpatient: None - Previous Substance Abuse Treatment Outpatient: None Inpatient: None - Reason for Previous Treatment Reason for Previous Treatment: Major Depression, Anxiety or Panic Disorder - Current Medications Current Medications: Active Medications Albuterol Sulfate (Ventolin 0.083% Nebulizer Soln -) 1 amp NEB Q6H PRN PRN Reason: SHORT OF BREATH/WHEEZING Clonazepam (Klonopin -) 1 mg PO BID [facility] Last Admin: 12/18/17 10:52 Dose: 1 mg Escitalopram Oxalate (Lexapro -) 10 mg PO DAILY [facility] Last Admin: 12/18/17 10:52 Dose: 10 mg Heparin Sodium (Porcine) (Heparin -) 5,000 unit SQ BID [facility] Last Admin: 12/18/17 10:52 Dose: 5,000 unit Insulin Aspart (Novolog Vial Sliding Scale -) 1 vial SQ ACHS [facility]; Protocol Last Admin: 12/18/17 12:26 Dose: Not Given - Allergies Allergies: Allergies Allergy/AdvReac Type Severity Reaction Status Date / Time No Known Allergies Allergy Verified 12/18/17 04:56 - Current Living Status Usual Living Arrangement: With Significant Other - Current Mental Status Evaluation Appearance: Well Groomed Attitude: Cooperative - Mood Mood: Euthymic - Speech/Language Expressive: Coherent - Psychomotor Activity Psychomotor Activity: Normal - Thought Process Thought Process: Intact - Thought Content Hallucinations: Absent Delusions: Absent - Self Perception Self Perception: No Impairment - Cognition Attention: Alert Orientation: Time Memory, Immediate Recall: Intact Memory, Short Term: 3/3 Memory, Remote with Promptin/3 - Concentration Serial Sevens Intact: Yes Simple Calculations Intact: Yes - Abstraction Proverb Interpretation: Intact Judgement: Intact - Insight Insight: Intact - Impulse Control Impulse Control: Good Control - Suicidal Ideation Suicidal Ideation: No - Homicidal Ideation Homicidal Ideation: No Assessment/Plan 1) Patient is not suicidal. 2) Continue with [facility] psych meds. Follow up with his MD.
[2017-12-18 15:09] VITALS: BMI 34.3
--- NOTE | 2017-12-18 16:35 | CON.CARD ---
Cardiology Consult (text) - Consultation Consultation Note: CC: cp 27 yo with PMHx of Depression/anxiety recently started on lexapro and klonopin, Asthma, obesity, recently diagnosed DM started on metformin who p/w persistent cp. Feels has been having 'anxiety attacks' over last few weeks, started no lexapro and klonipin. First p/w cp last week, was evaluated at [facility]. Per report, had neg work up. Presented to the ED here yesterday after cp progressed to abdominal pain. Was diagnosed with gastritis and sent home on protonix. LFT's noted to be elevated at the time. Was also bradycardic in the 50's. Returned to ED again today with persistent cp and also new sx of lightheadedness. States his hr was in the high 40's. states his cp typically occurs when lying down at night, improves with sitting up. + anxiety. rare palps, + apneic symptoms. Denies sob, orthopnea, pnd, le edema, palps, claudication or transient neurologic symptoms Denies f/c/s, n/v/d , cough, congestion, rash, h/a, visual disturbances, bleeding. pmhx/pshx: per hpi social hx: never tobacco, drank 3-4 drinks 4-5 days/week up until last month. once or twice a month would drink up to 12 beers. fam hx: Father with IL in 50s, uncle with IL. ros: per hpi Ambulatory Orders Escitalopram Oxalate [Lexapro -] 10 mg PO DAILY 12/17/17 Metformin HCl [Metformin HCl ER] 1,000 mg PO BID 12/17/17 clonazePAM [Klonopin -] 1 mg PO BID 12/17/17 Current Medications Albuterol Sulfate (Ventolin 0.083% Nebulizer Soln -) 1 amp NEB Q6H PRN PRN Reason: SHORT OF BREATH/WHEEZING Clonazepam (Klonopin -) 1 mg PO BID [facility] Last Admin: 12/18/17 10:52 Dose: 1 mg Escitalopram Oxalate (Lexapro -) 10 mg PO DAILY [facility] Last Admin: 12/18/17 10:52 Dose: 10 mg Heparin Sodium (Porcine) (Heparin -) 5,000 unit SQ BID [facility] Last Admin: 12/18/17 10:52 Dose: 5,000 unit Insulin Aspart (Novolog Vial Sliding Scale -) 1 vial SQ ACHS [facility]; Protocol Last Admin: 12/18/17 12:26 Dose: Not Given Vital Signs - 24 hr 12/18/17 12/18/17 12/18/17 04:56 09:35 14:22 Temperature 97.7 F Pulse Rate 59 L 85 Pulse Rate [ 57 L Apical] Respiratory 17 16 18 Rate Blood Pressure 131/96 117/70 Blood Pressure 145/74 [Right Arm] O2 Sat by Pulse 99 100 Oximetry (%) 12/18/17 12/18/17 15:01 15:12 Temperature 98.1 F Pulse Rate 53 L Pulse Rate [ Apical] Respiratory 18 18 Rate Blood Pressure 137/79 Blood Pressure [Right Arm] O2 Sat by Pulse 97 Oximetry (%) Intake & Output 12/16/17 12/17/17 12/18/17 12/19/17 07:59 07:59 07:59 07:59 Weight 229 lb 15.991 oz 229 lb NAD, anxious JVD flat, neck supple ctab, nl effort rrr nl s1, s2. no mrg + bs soft nt nd ext without e/c/c + dp/pt, no carotid bruits no jaundice, diaphoresis aaox3 CBC, BMP 12/18/17 05:05 12/18/17 05:05 Laboratory Tests 12/17/17 12/18/17 12/18/17 02:00 05:05 05:05 Hemoglobin A1c % 9.1 H Magnesium 2.1 Total Bilirubin 0.3 AST 48 H ALT 123 H Alkaline Phosphatase 79 Troponin I < 0.02 < 0.02 Albumin 4.0 Lipase 136 TSH 1.28 12/18/17 10:00 Hemoglobin A1c % Magnesium Total Bilirubin AST ALT Alkaline Phosphatase Troponin I < 0.02 Albumin Lipase TSH EKG: sb, 57 bpm. early r wave progression. no acute ischemic changes. tele: sb cxr: large heart, no acute pathology. abd u/s: fatty liver. nl abd aorta and ivc. 27 yo with PMHx of Depression/anxiety recently started on lexapro and klonopin, Asthma, obesity, recently diagnosed DM started on metformin who p/w persistent cp. cp: - atypical cp. ce's neg x 3. ekg without acute ischemic changes. check esr, crp to r/o pericarditis. check echo. + family hx of cad, + rf's. will check ETT. - eval/mgm't of possible gi component per pmd. - mgm't of anxiety per psych/pmd, utox ordered. sinus bradycardia - no acute pathology, tele benign, tsh wnl. lytes wnl. can follow up with cardiology as outpatient regarding whether further cardiac monitoring needed. - can consider sleep study. stable from CV perspective, ok to d/c from cv perspective if echo and ETT wnl.
[2017-12-18] MEDS ORDERED: ACETAMINOPHEN 325 MG TABLET (FP) ONE (21:47)
[2017-12-18] MEDS ORDERED: ACETAMINOPHEN 325 MG TABLET (FP) PO PRN (21:51)
[2017-12-19] MEDS: INSULIN SLIDING SCALE (NOVOLOG) 1 VIAL SQ SCH ×4 (06:32→21:13)
--- NOTE | 2017-12-19 06:35 | PN ---
Physical Exam: SUBJECTIVE: Patient seen and examined. No lightheadedness or palpitations, no SOB. OBJECTIVE: Vital Signs Period Temp Pulse Resp BP Sys/Hung Pulse Ox Last 24 Hr 97.5 F-98.1 F 53-85 16-20 98-145/64-81 97-100 Vital Signs Temp 97.8 F 12/19/17 09:00 Pulse 56 L 12/19/17 09:00 Resp 18 12/19/17 09:00 BP 126/79 12/19/17 09:00 Pulse Ox 97 12/19/17 09:00 GENERAL: The patient is awake, alert, and fully oriented, in no acute distress. LUNGS: Breath sounds equal, clear to auscultation bilaterally HEART: Regular rate and rhythm, S1, S2 without murmur ABDOMEN: Soft, nontender, nondistended, normoactive bowel sounds EXTREMITIES: 2+ pulses, warm, well-perfused, no edema. NEUROLOGICAL: Cranial nerves II through XII grossly intact. Normal speech, gait not observed. PSYCH: Normal mood, normal affect. Laboratory Results - last 24 hr 12/18/17 12/18/17 12/18/17 05:05 05:05 05:05 Platelet Estimate Adequate Platelet Comment No clotting detected Sodium 139 Potassium 4.5 Chloride 108 H Carbon Dioxide 27 Anion Gap 4 L BUN 8 D Creatinine 1.2 Creat Clearance w eGFR > 60 POC Glucometer Random Glucose 111 H D Hemoglobin A1c % Calcium 9.1 Phosphorus 6.9 H Cancelled Magnesium 2.1 Cancelled Total Bilirubin 0.3 AST 48 H ALT 123 H Alkaline Phosphatase 79 Creatine Kinase 183 Creatine Kinase Index 0.5 CK-MB (CK-2) < 1.000 Troponin I < 0.02 C-Reactive Protein Total Protein 7.1 Albumin 4.0 TSH 1.28 12/18/17 12/18/17 12/18/17 05:05 10:00 12:08 Platelet Estimate Platelet Comment Sodium Potassium Chloride Carbon Dioxide Anion Gap BUN Creatinine Creat Clearance w eGFR POC Glucometer 108 Random Glucose Hemoglobin A1c % 9.1 H Calcium Phosphorus Magnesium Total Bilirubin AST ALT Alkaline Phosphatase Creatine Kinase 135 Creatine Kinase Index CK-MB (CK-2) Troponin I < 0.02 C-Reactive Protein Total Protein Albumin TSH 12/18/17 12/18/17 12/18/17 17:03 18:45 21:55 Platelet Estimate Platelet Comment Sodium Potassium Chloride Carbon Dioxide Anion Gap BUN Creatinine Creat Clearance w eGFR POC Glucometer 120 143 Random Glucose Hemoglobin A1c % Calcium Phosphorus Magnesium Total Bilirubin AST ALT Alkaline Phosphatase Creatine Kinase Creatine Kinase Index CK-MB (CK-2) Troponin I C-Reactive Protein < 0.3 Total Protein Albumin TSH 12/19/17 06:05 Platelet Estimate Platelet Comment Sodium Potassium Chloride Carbon Dioxide Anion Gap BUN Creatinine Creat Clearance w eGFR POC Glucometer 92 Random Glucose Hemoglobin A1c % Calcium Phosphorus Magnesium Total Bilirubin AST ALT Alkaline Phosphatase Creatine Kinase Creatine Kinase Index CK-MB (CK-2) Troponin I C-Reactive Protein Total Protein Albumin TSH Active Medications Generic Name Dose Route Start Last Admin Trade Name Freq PRN Reason Stop Dose Admin Acetaminophen 650 mg 12/18/17 21:51 12/18/17 21:56 Tylenol - PO 650 mg Q6H PRN Administration PAIN LEVEL 6-10 Albuterol Sulfate 1 amp 12/18/17 09:02 Ventolin 0.083% Nebulizer Soln - NEB Q6H PRN SHORT OF BREATH/WHEEZING Clonazepam 1 mg 12/18/17 10:00 12/18/17 21:56 Klonopin - PO 1 mg BID JONNIE Administration Escitalopram Oxalate 10 mg 12/18/17 10:00 12/18/17 10:52 Lexapro - PO 10 mg DAILY JONNIE Administration Heparin Sodium (Porcine) 5,000 unit 12/18/17 10:00 12/18/17 21:56 Heparin - SQ 5,000 unit BID JONNIE Administration Insulin Aspart 1 vial 12/18/17 11:00 12/19/17 06:32 Novolog Vial Sliding Scale - SQ Not Given ACHS [facility] Protocol Ambulatory Orders Escitalopram Oxalate [Lexapro -] 10 mg PO DAILY 12/17/17 Metformin HCl [Metformin HCl ER] 1,000 mg PO BID 12/17/17 clonazePAM [Klonopin -] 1 mg PO BID 12/17/17 Current Medications Acetaminophen (Tylenol -) 650 mg PO Q6H PRN PRN Reason: PAIN LEVEL 6-10 Last Admin: 12/18/17 21:56 Dose: 650 mg Albuterol Sulfate (Ventolin 0.083% Nebulizer Soln -) 1 amp NEB Q6H PRN PRN Reason: SHORT OF BREATH/WHEEZING Clonazepam (Klonopin -) 1 mg PO BID [facility] Last Admin: 12/18/17 21:56 Dose: 1 mg Escitalopram Oxalate (Lexapro -) 10 mg PO DAILY [facility] Last Admin: 12/18/17 10:52 Dose: 10 mg Heparin Sodium (Porcine) (Heparin -) 5,000 unit SQ BID [facility] Last Admin: 12/18/17 21:56 Dose: 5,000 unit Insulin Aspart (Novolog Vial Sliding Scale -) 1 vial SQ ACHS [facility]; Protocol Last Admin: 12/19/17 06:32 Dose: Not Given CT abdomen/pelvis 12/17/17: No CT evidence of an acute process in the abdomen and pelvis. Limited evaluation of the colon due to lack of oral contrast administration with suggestion of scattered diverticula and without evidence of colitis/ acute diverticulitis. Minimal anterolisthesis of L5 over S1, grade 1 with chronic spondylolysis of the pars interarticularis, bilaterally. CXR 12/17/17: no acute pathology ECHO: LV systolic function is moderately reduced. Moderate global kinesis of LV. Left ventricle is mildly dilated . No pericardial effusion. ASSESSMENT/PLAN: The patient is a 27 year old male with a PMH of depression, anxiety, DMII, asthma that presented to the hospital complaining of lightheadedness and low HR measured at home. He checks his HR several times a day and it ranges from 47 to 86. He endorses lightheadedness, chest tightness, occasional palpitations when lying in bed.The patient is admitted for lightheadedness, R/O ACS. R/o ACS: -the patient presented with compaints of lightheadedness, bradycardia and chest tightness that usually happens when he is in bed. The patient is also experiencing anxiety attacks and was started on new meds recently. His symptoms may be related to depression/anxiety but we need to r/o ACS. -we will continue cardiac monitoring- regina and some tachy -ECHO done- see above -Trops x3 negative -EKG NSR, no sarah/std, 57 bpm, QTC 424 -will f/u Cardiology recommendations -check esr, crp to r/o pericarditis. check echo. + family hx of cad, + rf's. will check ETT. -sinus bradycardia - no acute pathology, tsh wnl. lytes wnl. - Pending nuclear stress test Elevated liver enzymes: -the patient was told in the past that he has fatty liver and that also prompted him to stop drinking alcohol -CT abdomen didn't visualize any abnormality -we will obtain US liver -avoid toxic substances -will trend CMP History of alcoholism: -the patient states that he s not drinking for a month -will add on phosphorus and Mg to morning labs -counseling DMII: -states that his last Hg A1C was 9.85 last week, 9.1 here -BGM ACHS -ISS ACHS -Metformin held -Diabetic diet -educated on healthy diet and need to check glucose at home Depression and anxiety: -recently diagnosed, no attacks in the hospital, no suicidal, no need for 1:1 continue home medications -Psychiatry consult- Dr Greer- appreciate rec Hyperphosphatemia: -normal Ca -will obtain PTH, Vit D -will monitor Asthma: -Albuterol PRN -stable F/E/N: no/no changes/Diabetic DVT PPX: Heparin sq scds Disposition: For D/C following nuclear stress test Visit type - Emergency Visit Emergency Visit: Yes ED Registration Date: 12/18/17 Care time: The patient presented to the Emergency Department on the above date and was hospitalized for further evaluation of their emergent condition. - New Patient This patient is new to me today: Yes Date on this admission: 12/19/17 - Critical Care Critical Care patient: No - Discharge Referral Referred to [facility] No
[2017-12-19 07:02] LABS: HEMATOCRIT 46.2 % (35.4-49); HEMOGLOBIN 14.7 GM/dL (11.7-16.9); MCH 22.3 pg (25.7-33.7); MCHC 31.8 g/dl (32.0-35.9); MEAN PLT VOLUME 10.2 fl (7.5-11.1); PLATELET COUNT 232 K/MM3 (134-434); RDW 14.8 % (11.9-15.9); WHITE BLOOD COUNT 7.1 K/mm3 (4.0-10.0)
[2017-12-19 07:20] LABS: ANION GAP 7 (8-16); BLOOD UREA NITROGEN 10 mg/dL (7-18); CALCIUM 9.1 mg/dL (8.5-10.1); CHLORIDE 105 mmol/L (98-107); CO2 27 mmol/L (21-32); CREATININE 1.3 mg/dL (0.7-1.3); GLUCOSE,RANDOM 95 mg/dL (74-106); POTASSIUM 4.4 mmol/L (3.5-5.1); SGOT/AST 44 U/L (15-37); SGPT/ALT 135 U/L (12-78); SODIUM 139 mmol/L (136-145); TRIGLYCERIDES 180 mg/dL (35-160)
[2017-12-19 07:26] LABS: ALK PHOS 74 U/L (45-117); BILIRUBIN,TOTAL 0.4 mg/dL (0.2-1.0); CHOLESTEROL 159 mg/dL (50-200); HDL CHOLESTEROL 42 mg/dL (40-60); PHOSPHOROUS 5.4 mg/dL (2.5-4.9); TOT PROT 7.2 g/dl (6.4-8.2)
[2017-12-19] MEDS: clonazePAM 0.5 MG TABLET PO SCH ×2 (09:43→21:13)
[2017-12-19] MEDS: ESCITALOPRAM OXALATE 10 MG TABLET (FP) PO SCH (09:43)
[2017-12-19] MEDS: HEPARIN NA (PORCINE) 5,000 UNITS/ML 1ML VIAL SQ SCH ×2 (09:43→21:13)
--- NOTE | 2017-12-19 13:16 | PN ---
Teaching Attending Note Name of Resident: Eunice Arredondo Arleenbre ATTENDING PHYSICIAN STATEMENT I saw and evaluated the patient. I reviewed the resident's note and discussed the case with the resident. I agree with the resident's findings and plan as documented. SUBJECTIVE:no recurring episodes of palpitations. notes that when he gets out of the bed that his HR increases. states he was sleeping around 6am and no symptoms which correlated with an episodes of sinus tachycardia. denies CP, fever, chills, cough, N/V/C/D OBJECTIVE: Last Vital Signs Temp Pulse Resp BP Pulse Ox 97.8 F 56 L 18 126/79 97 12/19/17 09:00 12/19/17 09:00 12/19/17 09:00 12/19/17 09:00 12/19/17 09:00 General NAD CV S1 S2 RRR no murmur/rub/gallop Lungs CTA B/L no wheezing/rales/rhonchi ASSESSMENT AND PLAN: 27 yo M with obesity, depression, anxiety, recently diagnosed DM, placed on metformin, comes with ongoing symptoms of "anxiety attack", chest pain, dyspnea , palpitations, light headedness. 1. Palpitations/lightheadedness, r/o arrhythmia, unlikely ACS - likely anxiety induced. on the monitor noted to be mostly in 50-60s with light activity of pt marching in place HR climbs to 104. states he is not having any symptoms during this time. plan for echo and exercise stress test. if unrevealing and pt continues to have symptoms should f/u cardio as outpatient for possible loop recorder 2. Hyperphosphatemia- trending down 3. Abnormal LFTs- likely hepatic steatosis. stable. educated on lifestyle modification and dietary changes. will need to f/u with PMD as outpatient for repeat testing. consider starting statin 4. Recently Diagnosed DM- controlled here. d/c on home medication. lifestyle modifications 5. Depression-seen by psych and determined not suicidal. cont home regimen. recently started medications 6. Anxiety- cont home regimen 7. Obesity- BMI 34. educated on need for lifestyle modification would decrease overall mortality. goal to loose 1 lb/week 8. d/c planning today pending results of echo and stress test.
--- NOTE | 2017-12-19 16:49 | PN ---
Progress Note, Physician Chief Complaint: cp History of Present Illness: no more cp no sob, palpitations, very scared/anxious heavy etoh x 10 yrs--quit 3 mo ago light cigs - Current Medication List Current Medications: Active Medications Acetaminophen (Tylenol -) 650 mg PO Q6H PRN PRN Reason: PAIN LEVEL 6-10 Last Admin: 12/18/17 21:56 Dose: 650 mg Albuterol Sulfate (Ventolin 0.083% Nebulizer Soln -) 1 amp NEB Q6H PRN PRN Reason: SHORT OF BREATH/WHEEZING Clonazepam (Klonopin -) 1 mg PO BID [facility] Last Admin: 12/19/17 09:43 Dose: 1 mg Escitalopram Oxalate (Lexapro -) 10 mg PO DAILY [facility] Last Admin: 12/19/17 09:43 Dose: 10 mg Heparin Sodium (Porcine) (Heparin -) 5,000 unit SQ BID [facility] Last Admin: 12/19/17 09:43 Dose: 5,000 unit Insulin Aspart (Novolog Vial Sliding Scale -) 1 vial SQ ACHS [facility]; Protocol Last Admin: 12/19/17 11:31 Dose: Not Given - Objective Vital Signs: Vital Signs Temperature 97.8 F 12/19/17 09:00 Pulse Rate 56 L 12/19/17 09:00 Respiratory Rate 18 12/19/17 09:00 Blood Pressure 126/79 12/19/17 09:00 O2 Sat by Pulse Oximetry (%) 97 12/19/17 09:00 Constitutional: Yes: No Distress, Calm, Obese Cardiovascular: Yes: Regular Rate and Rhythm, S1, S2. No: Gallop Respiratory: Yes: Regular, CTA Bilaterally. No: Accessory Muscle Use, Rales, Wheezes Extremities: No: Cold Edema: No Neurological: Yes: Alert, Oriented Psychiatric: No: Agitated Labs: CBC, BMP 12/19/17 06:00 12/19/17 06:00 Assessment/Plan EKG: sb, 57 bpm. early r wave progression. no acute ischemic changes. tele: sb cxr: large heart, no acute pathology. abd u/s: fatty liver. nl abd aorta and ivc Echo 12/19/17: mild LVE, moderatel global hypokinesis, EF moderately reduced (no number reported). nl RV. mild LAE. valves WNL. no peric eff. tele: NSR, no regina's, no VT/SVT 27 yo with PMHx of Depression/anxiety recently started on lexapro and klonopin, Asthma, obesity, recently diagnosed DM started on metformin who p/w persistent cp. cp: - atypical cp--feeling of someone sitting on chest in setting of uncontrolled anxiety attack. - ce's neg x 3. ekg without acute ischemic changes. highly likely sx secondary to anxiety. - no signs pericarditis (no ekg changes, no peric effusion, no friction rub heard, normal CRP/sed rate). - sx's have resolved. - to have inpatient cath as w/u for cardiomyopathy. cardiomyopathy: - echo reporting moderate LV hypo, global - my review--apical windows poor quality. likely mild dysfuntion in 45-50% range. no RWMAs - suspect secondary to heavy etoh abuse, now abstinent--pt advised of cv benefits of continued complete abstinence. - given DM, FH, atyp CP, i rec'd cath to definitively exclude ischemic CMP. disc 'd with pt and father (at bedside) risks vs benefits--he agrees to proceed. - prefers to do at [facility], will arrange sinus bradycardia - mild (HR 50s, pt reports 40s from outside). - no acute pathology, tele benign, tsh wnl. lytes wnl. can follow up with cardiology as outpatient regarding whether further cardiac monitoring needed. - observe
[2017-12-19] MEDS ORDERED: INSULIN (NOVOLOG) ASPART 100 UNITS/ML 10ML VIAL ONE (16:59)
[2017-12-19 18:15] LABS: COCAINE, UR NEGATIVE ng/ml (CUTOFF=300); METHADONE, UR NEGATIVE ng/ml (CUTOFF=300); OPIATES, URI NEGATIVE ng/ml (CUTOFF=300); PHENCYCLIDINE,URINE NEGATIVE ng/ml (CUTOFF=25); URINE AMPHETAMINES NEGATIVE ng/ml (CUTOFF=500); URINE BARBITURATES NEGATIVE ng/ml (CUTOFF=200); URINE BENZODIAZEPINES NEGATIVE ng/ml (CUTOFF=200)
[2017-12-19 23:03] VITALS: BP 113/66; PULSE 61; TEMP 98.2
--- NOTE | 2017-12-20 07:43 | DS ---
Physical Exam: HOSPITAL COURSE: CT abdomen/pelvis 12/17/17: No CT evidence of an acute process in the abdomen and pelvis. Limited evaluation of the colon due to lack of oral contrast administration with suggestion of scattered diverticula and without evidence of colitis/ acute diverticulitis. Minimal anterolisthesis of L5 over S1, grade 1 with chronic spondylolysis of the pars interarticularis, bilaterally. CXR 12/17/17: no acute pathology ECHO: LV systolic function is moderately reduced. Moderate global kinesis of LV. Left ventricle is mildly dilated . No pericardial effusion. Date of Admission:12/18/17 Date of Discharge: 12/20/17 Prehospital course: The patient is a 27 year old male with a PMH of depression, anxiety, DMII, asthma that presented to the hospital complaining of lightheadedness and low HR measured at home. He checks his HR several times a day and it ranges from 47 to 86. He endorses lightheadedness, chest tightness, occasional palpitations when lying in bed.The patient is admitted for lightheadedness, R/O ACS. Hospital Course: He was noted to have elevated liver enzymes, with hepatic steatosis with a hx of heavy alcohol ingestion. Needed repletion of phosphorus and magnesium. He was recently diagnosed with diabetes, with Hg A1C of 9.1 on admission. He was placed on insulin sliding scale on admission, and may resume his home metformin on discharge. He received diabetic education. He continued his home pysch medications and was seen by psychiatry. Pt was seen here by psychiatry and deemed not to be suicidal. He was continued on his home psychiatry medications. He continued his albuterol nebulizer for asthma. Pt was to have a 2 part nuclear stress test, first part was normal , but Pt was transferred to a tertiary health care center for expert management before the second part of the test could be done. Minutes to complete discharge: 40 Discharge Summary Reason For Visit: LIGHTHEADEDNESS,CHEST PAIN Condition: Stable - Instructions Diet, Activity, Other Instructions: You came in for lightheadedness and palpitations We checked your cardiac enzymes and EKGs there was no sign of a heart attack You got an ECHO (ultrasound of the heart) that showed reduced function of your heart You will follow up with a foil spinner (Dr Suarez) as an outpatient Continue your psychiatry medications as prescribed You may follow up with your primary care doctor (Dr Gilliam) or with the psychiatrist that saw you here (Dr Greer) You were recently diagnosed with diabetes, continue your home metformin You were noted to have elevated liver enzymes with fatty liver- please follow up with a gastroenteritis (GI) in 2 weeks time for repeat liver enzymes and follow up You will benefit from outpatient sleep studies Please follow up with Dr Sadler (trousseau consultant) as an outpatient Continue your other medications as prescribed Follow up with your primary care physician in a week's time Referrals: Awais Sadler MD [Staff Physician] - 1 Week Ambar Suarez MD [Staff Physician] - 1 Week Chriss Greer MD [Staff Physician] - 2 Weeks Marcus Beltran MD [Staff Physician] - 2 Weeks Disposition: TRANSFER ACUTE CARE/OTHER HOSP - Home Medications Comprehensive Discharge Medication List: Ambulatory Orders Clonazepam [Klonopin] 0.5 mg PO DAILY 12/06/17 Escitalopram Oxalate [Lexapro -] 10 mg PO DAILY 12/17/17 Metformin HCl [Metformin HCl ER] 1,000 mg PO BID 12/17/17 This patient is new to me today: Yes Date on this admission: 12/20/17 Emergency Visit: No Critical Care patient: No - Discharge Referral Referred to [facility] No
== END 2017-12-19 23:09 | disposition short-term general hospital (02) ==
LOC: JER 04:48 → JERBED 06:52 → J4W 10:20
PROVIDERS: ADMIT Internal Medicine; ATTEND Internal Medicine
PROC: 3E033GC Introduction of Other Therapeutic Substance into Peripheral Vein, Percutaneous Approach (ICD-10-PCS; principal; 2017-12-18)
DX: R07.89 Other chest pain (principal); R00.1 Bradycardia, unspecified; R42 Dizziness and giddiness; E11.9 Type 2 diabetes mellitus without complications; F32.9 Major depressive disorder, single episode, unspecified; F41.9 Anxiety disorder, unspecified; F10.21 Alcohol dependence, in remission; R94.5 Abnormal results of liver function studies; K76.0 Fatty (change of) liver, not elsewhere classified; J45.909 Unspecified asthma, uncomplicated; I42.9 Cardiomyopathy, unspecified; E83.39 Other disorders of phosphorus metabolism; E66.9 Obesity, unspecified; Z68.34 Body mass index [BMI] 34.0-34.9, adult; Z79.84 Long term (current) use of oral hypoglycemic drugs
CPT/HCPCS: 36415; 76705-TC; 80053; 80061; 80307; 82550; 82553; 82962; 83036; 83721; 83735; 83970; 84100; 84443; 84484; 85025; 85027; 85651; 86140; 93005; 93010; 93306-TC; 99285-25; A9502; G0378; J1644

== ENCOUNTER 2023-10-23 22:59 | Emergency (ER) | payer SELFPAY ==
[2023-10-23 23:16] VITALS: BP 118/89; PULSE 88; RESP 18; TEMP 98; BMI 33.6
[2023-10-23 23:25] LABS: HEMATOCRIT 44.9 % (35.4-49); HEMOGLOBIN 14.2 G/dL (11.7-16.9); MCH 22.2 pg (25.7-33.7); MCHC 31.5 g/dl (32.0-35.9); MEAN CELL VOLUME 70.3 fl (80-96); MEAN PLT VOLUME 9.3 fl (7.5-11.1); PLATELET COUNT 256.9 10^3/uL (134-434); RBC 6.38 10^6/uL (4.00-5.60); RDW 18.7 % (11.9-15.9); WHITE BLOOD COUNT 8.3 10^3/uL (4.0-10.8)
[2023-10-23 23:30] LABS: PLATELET ESTIMATE ADEQUATE
[2023-10-23 23:46] LABS: ALBUMIN 4.4 g/dl (3.4-5.0); BILIRUBIN,TOTAL 0.2 mg/dl (0.2-1); CALCIUM 9.5 mg/dl (8.5-10.1); CREATININE 1.1 mg/dl (0.6-1.3); POTASSIUM 4.2 mmol/L (3.5-5.1); TOT PROT 6.8 g/dl (6.4-8.2)
[2023-10-23] MEDS ORDERED: ALBUTEROL SO4 2.5/IPRATROPIUM 0.5 INH SOL 3 ML VIAL.NEB. NEB ONE (23:51)
[2023-10-23] MEDS: ALBUTEROL SO4 2.5/IPRATROPIUM 0.5 INH SOL 3 ML VIAL.NEB. NEB ONE (23:52)
[2023-10-24] MEDS: SODIUM CHLORIDE 1,000 ML IV STA (00:36)
== END 2023-10-24 01:25 | disposition home or self-care (01) ==
LOC: FER 22:59
PROC: 3E0F7GC Introduction of Other Therapeutic Substance into Respiratory Tract, Via Natural or Artificial Opening (ICD-10-PCS; 2023-10-23)
PROC: 3E0337Z Introduction of Electrolytic and Water Balance Substance into Peripheral Vein, Percutaneous Approach (ICD-10-PCS; principal; 2023-10-24)
DX: R07.89 Other chest pain (principal); R06.02 Shortness of breath
CPT/HCPCS: 36415; 71275-TC; 80053; 84484; 85025; 93005; 99285-25; Q9967